=== PATIENT | female | born 1980 | race Caucasian/White ===

== ENCOUNTER 2017-12-16 00:51 | Emergency (ER) | payer MEDICAID ==
[2017-12-16] MEDS ORDERED: ASPIRIN 81 MG CHEWABLE TABLET PO ONE (00:58)
[2017-12-16] MEDS ORDERED: 0.9 % SODIUM CHLORIDE 1000ML 1,000 ML IV SCH (01:00)
--- NOTE | 2017-12-16 01:02 | Emergency Department Record ---
History of Present Illness - General Chief Complaint: Chest Pain Stated Complaint: CHEST PAIN Time Seen by Provider: 12/16/17 00:57 Source: Patient Mode of Arrival: EMS Limitations: No limitations - History of Present Illness Initial Comments: 37 yo female presents to ED for evaluation of chest pain and palpitations that began shortly after being arrested this evening. Patient reports that she takes a medication for "high heart rate", but has been out of her medication for approximately 1 month. Patient also reports history of DM, HTN. Patient denies previous TN or stent placement, moved her 2 months ago. Patient denies lower extremity swelling or history of DVT. MD Complaint: Chest pain Onset/Timin -: Month(s) Pain Location: Left chest Severity: Moderate Quality: Aching Consistency: Intermittent Improves With: Nothing Worsens With: Nothing Treatments Prior to Arrival: Aspirin - Related Data On Oral Contraceptives: No Home Medications Medication Instructions Recorded Confirmed Last Taken No Home Med [NO HOME MEDS] 12/16/17 12/16/17 Unknown Allergies Allergy/AdvReac Type Severity Reaction Status Date / Time hydrocodone AdvReac NAUSEA Verified 12/16/17 00:53 Review of Systems Constitutional: Denies: Chills, Fever, Malaise, Night sweats Eyes: Denies: Eye discharge, Eye pain ENT: Denies: Congestion, Ear pain, Epistaxis Respiratory: Denies: Cough, Dyspnea Cardiovascular: Reports: Chest pain. Denies: Dyspnea on exertion Endocrine: Denies: Fatigue, Heat or cold intolerance Gastrointestinal: Denies: Abdominal pain, Nausea, Vomiting Genitourinary: Denies: Incontinence, Retention Musculoskeletal: Denies: Arthralgia, Back pain, Gout, Joint swelling Skin: Denies: Bruising, Change in color Neurological: Denies: Abnormal gait, Confusion, Headache, Seizure Psychiatric: Denies: Anxiety Hematological/Lymphatic: Denies: Anemia, Blood Clots Physical Exam - General General Appearance: Alert, Oriented x3, Cooperative, Mild distress Limitations: No limitations - Head Head exam: Atraumatic, Normocephalic, Normal inspection Head exam detail: negative: Abrasion, Contusion, Delacruz's sign, General tenderness, Hematoma, Laceration - Eye Eye exam: Normal appearance. negative: Conjunctival injection, Periorbital swelling, Periorbital tenderness, Scleral icterus - ENT Ear exam: negative: Auricular hematoma, Auricular trauma Nasal Exam: negative: Active bleeding, Discharge, Dried blood, Foreign body Mouth exam: negative: Drooling, Laceration, Muffled voice, Tongue elevation - Neck Neck exam: Normal inspection. negative: Meningismus, Tenderness - Respiratory Respiratory exam: Normal lung sounds bilaterally. negative: Rales, Respiratory distress, Rhonchi, Stridor - Cardiovascular Cardiovascular Exam: Normal rhythm, Normal heart sounds, Tachycardia - GI/Abdominal GI/Abdominal exam: Soft. negative: Rebound, Rigid, Tenderness - Rectal Rectal exam: Deferred - exam: Deferred - Extremities Extremities exam: Normal inspection. negative: Calf tenderness, Pedal edema, Tenderness - Back Back exam: Denies: CVA tenderness (R), CVA tenderness (L) - Neurological Neurological exam: Alert, Normal gait, Oriented X3 - Psychiatric Psychiatric exam: Flat affect, Normal mood - Skin Skin exam: Normal color. negative: Abrasion Type of lesion: negative: abrasion Course Vital Signs 12/16/17 00:51 Temperature 98.8 F Pulse Rate [ 127 H [employer] ] Respiratory 20 Rate Blood Pressure 149/92 [Right Arm] Pulse Ox 92 L - Reevaluation(s) Reevaluation #1: 12/16/17 01:03 EKG: Sinus tachycardia 121 Normal axis, normal intervals No acute ST-T wave changes Reevaluation #2: 12/16/17 02:13 Labs reviewed: WBC 18.7 Glucose 294 D-Dimer 0.43 CXR: No acute process Patient was updated on all results thus far, will plan for repeat Troponin at 3- hours. Reevaluation #3: 12/16/17 02:23 Patient reassessed, resting comfortably and updated on all results. Pulse improved to 95 on re-examination. Reevaluation #4: 12/16/17 04:30 Repeat Troponin is negative, and the patient appears stable for transfer to Assisted at this time, Medical Decision Making - Lab Data Result diagrams: 12/16/17 01:10 12/16/17 01:10 Disposition Disposition: Discharge Clinical Impression: Hyperglycemia Chest pain Qualifiers: Chest pain type: unspecified Qualified Code(s): R07.9 - Chest pain, unspecified Disposition: Home, Self-Care Condition: (2) Stable Instructions: Chest Pain (ED) Additional Instructions: Return to ED if your symptoms worsen or if you have any concerns. Follow-up with your family doctor in 3-5 days as directed. Forms: Patient Portal Access Time of Disposition: 04:30 Quality - Quality Measures Quality Measures: N/A - Blood Pressure Screening Does Patient Have Any of the Following: No Blood Pressure Classification: Normal BP Reading Systolic Measurement: 114 Diastolic Measurement: 74 Screening for High Blood Pressure: < Normal BP, F/U Not Required > [[id number]] Pre-Hypertensive Follow-up Interventions: Referral to alternative/primary care provider.
[2017-12-16 01:18] LABS: HEMATOCRIT 48.5 % (35.0-47.0); HEMOGLOBIN 16.2 gm/dl (11.6-16.0); MEAN CELL VOLUME 89.2 fl (81-97); MEAN CORPUSCULAR HGB CONC 33.4 g/dl (32-36); MEAN PLATELET VOLUME 9.4 fl (7.4-10.4); PLATELET COUNT 423 K/uL (130-400); RED BLOOD COUNT 5.44 M/uL (3.80-5.40); RED CELL DISTRIBUTION WIDTH 12.9 % (11.5-14.5); WHITE BLOOD COUNT W/O DIFF 18.7 K/uL (4.2-12.2)
[2017-12-16 01:22] LABS: MEAN CORPUSCULAR HEMOGLOBIN 29.7 pg (27-33)
[2017-12-16 01:30] LABS: PLATELET ESTIMATE NORMAL (NORMAL)
[2017-12-16 01:51] LABS: BLOOD UREA NITROGEN 8 mg/dL (6-20); CREATININE 0.6 mg/dL (0.5-0.9); EST GLOMERULAR FILTRATION RATE > 60 mL/min
[2017-12-16 01:52] LABS: TOTAL PROTEIN 7.3 g/dL (6.6-8.7)
[2017-12-16 01:54] LABS: GLUCOSE,RANDOM 294 mg/dL (74-109)
[2017-12-16 01:57] LABS: ALB/GLOB RATIO 1.4 (1.1-1.8); ALBUMIN 4.3 g/dL (4.0-5.0); ALKALINE PHOSPHATASE 76 U/L (35-104); ALT/SGPT 13 U/L (<33); AST/SGOT 12 U/L (10.0-35.0)
--- NOTE | 2017-12-18 08:42 | RADIOLOGY REPORT ---
EXAM: CHEST, TWO VIEWS HISTORY: MEDIASTINAL CHEST PAIN FOR THE PAST TWO MONTHS. TECHNIQUE: PA and lateral upright views of the chest were obtained. Comparison: None. FINDINGS: The heart, mediastinum, and pulmonary vasculature are normal. The lungs are clear. There is no pneumothorax or effusion. The bones appear intact. IMPRESSION: NO ACUTE CHEST PATHOLOGY. JOB NUMBER: [id number] MTDD
== END 2017-12-16 04:43 | disposition home or self-care (01) ==
LOC: ER 00:51
DX: R07.9 Chest pain, unspecified (principal); I10 Essential (primary) hypertension; E11.65 Type 2 diabetes mellitus with hyperglycemia
CPT/HCPCS: 71046; 80053; 84484; 85027; 85379; 93005; 93010; 99284; J7030